=== PATIENT | female | born 1985 | race African-American/Black ===

== ENCOUNTER 2018-11-04 20:03 | Emergency (ER) | payer MEDICAID ==
[~2018-11-04] VITALS: Ht 149.9 cm; Wt 68.0 kg
[2018-11-04] MEDS ORDERED: NKM (20:11)
--- NOTE | 2018-11-04 20:19 | NUR ---
ED Nurse Note: pt walked in c/o abd cramping pain since yesterday, pt reports she started her menstrual cycle yesterday and pain progressively worsen and pt reports her bleeding color is black. denies . will cont monitor.
--- NOTE | 2018-11-04 20:22 | Emergency Room Report ---
History of Present Illness General Chief Complaint: Female Urogenital Problems Source: Patient Present Illness HPI Patient presents with severe menstrual cramps. She rates it 10/10. Her period started 2 days early. She states that she is passing black menstrual blood. She denies any discharge. There is no dysuria. The pain is suprapubic midline. She has had cramps in the past but not like this in the past. She tried taking Animas and did not control the pain. She does not believe she is . She denies fevers or chills. She has not had unprotected sex. She does not use tampons. She denies recent ultrasound or work-up. She is not passing clots. No sore throat, chest pain, palpitations, nausea, vomiting, diarrhea, shortness of breath, joint pain, rashes, depression, anxiety, visual changes, headache. Allergies: Coded Allergies: No Known Allergies (Unverified , 11/04/18) Patient History Past Medical History: see triage record Social History: Reports: smoking Social History Narrative Has a son and here with mom Last Menstrual Period: 11/03/18 Now: No Reviewed Nursing Documentation: PMH: Agreed; PSxH: Agreed Nursing Documentation-PMH Past Medical History: No History, Except For Hx Asthma: Yes Review of Systems All Other Systems: negative except mentioned in HPI Physical Exam Vital Signs Date Time Temp Pulse Resp B/P (MAP) Pulse Ox O2 Delivery O2 Flow Rate FiO2 11/04/18 20:05 97.9 75 20 106/51 (69) 100 Room Air Sp02 EP Interpretation: reviewed, normal General Appearance: well appearing, no apparent distress, GCS 15, non-toxic Head: normocephalic, atraumatic Eyes: bilateral eye normal inspection, bilateral eye PERRL, bilateral eye EOMI ENT: moist mucus membranes Neck: supple Respiratory: lungs clear, normal breath sounds Cardiovascular #1: regular rate, rhythm Cardiovascular #2: 2+ radial (R) Gastrointestinal: normal inspection, normal bowel sounds, no mass, non- distended, no guarding, no rebound, tenderness - Midline suprapubic Genitourinary: no CVA tenderness, deferred - For ultrasound Musculoskeletal: back normal, gait/station normal, normal range of motion Neurologic: alert, oriented x3, grossly normal Psychiatric: mood/affect normal Skin: no rash Medical Decision Making Diagnostic Impression: Primary Impression: Painful menstrual flow ER Course Patient with suprapubic pain and vaginal bleeding. Differential includes ectopic , ruptured ovarian cyst, elevated inflammatory disease, UTI amongst others. She will be evaluated with labs and urinalysis and pelvic ultrasound. The patient would be treated with Reglan, Benadryl and morphine with some IV hydration. CBC unremarkable. Urinalysis with blood. Ultrasound essentially normal. (Per tech reading. See below.) Wet mount from ultrasound probe unremarkable. Contaminated urine. No tx. Await culture. I advised against treatment. Pain is remarkably improved. Discussed results with patient. Advised to follow -up with your [employer]. Patient stable for outpatient observation and treatment. Laboratory Tests Test 11/04/18 20:16 11/04/18 20:35 Urine Color Yellow Urine Appearance Cloudy Urine pH 5 (4.5-8.0) Urine Specific [place] 1.015 (1.005-1.035) Urine Protein 1+ (NEGATIVE) H Urine Glucose (UA) Negative (NEGATIVE) Urine Ketones Negative (NEGATIVE) Urine Blood 5+ (NEGATIVE) H Urine Nitrite Negative (NEGATIVE) Urine Bilirubin Negative (NEGATIVE) Urine Urobilinogen 4 MG/DL (0.0-1.0) H Urine Leukocyte Esterase 2+ (NEGATIVE) H Urine RBC Tntc /HPF (0 - 2) H Urine WBC 10-15 /HPF (0 - 2) H Urine Squamous Epithelial Cells Few /LPF (NONE/OCC) Urine Bacteria Moderate /HPF (NONE) H Urine HCG, Qualitative Negative (NEGATIVE) Chlamydia trachomatis RNA Pending Neisseria gonorrhoeae RNA Pending White Blood Count 7.9 K/UL (4.8-10.8) Red Blood Count 4.32 M/UL (4.20-5.40) Hemoglobin 11.9 G/DL (12.0-16.0) L Hematocrit 37.3 % (37.0-47.0) Mean Corpuscular Volume 86 FL (80-99) Mean Corpuscular Hemoglobin 27.6 PG (27.0-31.0) Mean Corpuscular Hemoglobin Concent 32.0 G/DL (32.0-36.0) Red Cell Distribution Width 12.0 % (11.6-14.8) Platelet Count 349 K/UL (150-450) Mean Platelet Volume 5.4 FL (6.5-10.1) L Neutrophils (%) (Auto) 52.2 % (45.0-75.0) Lymphocytes (%) (Auto) 38.5 % (20.0-45.0) Monocytes (%) (Auto) 5.4 % (1.0-10.0) Eosinophils (%) (Auto) 2.5 % (0.0-3.0) Basophils (%) (Auto) 1.4 % (0.0-2.0) Prothrombin Time 10.5 SEC (9.30-11.50) Prothrombin Time INR 1.0 (0.9-1.1) PTT 30 SEC (23-33) Sodium Level 138 MMOL/L (136-145) Potassium Level 3.7 MMOL/L (3.5-5.1) Chloride Level 105 MMOL/L (98-107) Carbon Dioxide Level 27 MMOL/L (21-32) Anion Gap 6 mmol/L (5-15) Blood Urea Nitrogen 12 mg/dL (7-18) Creatinine 0.8 MG/DL (0.55-1.30) Estimate Glomerular Filtration Rate > 60 mL/min (>60) Glucose Level 89 MG/DL (74-106) Calcium Level 8.7 MG/DL (8.5-10.1) Total Bilirubin 0.2 MG/DL (0.2-1.0) Aspartate Amino Transferase (AST) 16 U/L (15-37) Alanine Aminotransferase (ALT) 9 U/L (12-78) L Alkaline Phosphatase 49 U/L (46-116) Total Protein 6.8 G/DL (6.4-8.2) Albumin 4.1 G/DL (3.4-5.0) Globulin 2.7 g/dL Albumin/Globulin Ratio 1.5 (1.0-2.7) Lipase 124 U/L (73-393) Microbiology Date/Time Source Procedure Growth Status 11/04/18 21:35 Vaginal Wet Prep - Final Complete CT/MRI/US Diagnostic Results CT/MRI/US Diagnostic Results : Imaging Test Ordered: Pelvic ultrasound Impression IMPRESSION: Mild heterogeneity to the uterus echotexture that could represent the presence of small fibroids. Otherwise unremarkable pelvic ultrasound. Last Vital Signs Date Time Temp Pulse Resp B/P (MAP) Pulse Ox O2 Delivery O2 Flow Rate FiO2 11/04/18 22:30 97.9 79 16 110/56 100 Room Air Status: improved Disposition: HOME, SELF-CARE Condition: Improved Scripts Tramadol Hcl* (ULTRAM*) 50 Mg Tablet 50 MG ORAL Q6H PRN for For Pain, #8 TAB 0 Refills Prov: Carlos Gasca MD 11/04/18 Carlos Gasca MD Nov 04, 2018 20:22
[2018-11-04 20:30] LABS: APPEARANCE,URINE CLOUDY; BILIRUBIN, URINE NEGATIVE (NEGATIVE); GLUCOSE, URINE (UA) NEGATIVE (NEGATIVE); KETONES,URINE NEGATIVE (NEGATIVE); LEUKOCYTE ESTERASE ,URINE 2+ (NEGATIVE); NITRITE,URINE NEGATIVE (NEGATIVE); PH,URINE 5 (4.5-8.0); PROTEIN,URINE 1+ (NEGATIVE); UROBILINOGEN,URINE 4 MG/DL (0.0-1.0)
[2018-11-04] MEDS ORDERED: Metoclopramide 10mg/2ml Inj IVP ONE (20:30)
[2018-11-04] MEDS ORDERED: Morphine Sulfate 4mg/ml Inj (IV USE ONLY) IVP ONE (20:30)
[2018-11-04] MEDS ORDERED: DiphenhydrAMINE 50mg/ml Inj IVP ONE (20:30)
[2018-11-04 20:33] LABS: COLOR,URINE YELLOW
[2018-11-04 20:50] LABS: BASOPHILS % (AUTO) 1.4 % (0.0-2.0); EOSINOPHILS % (AUTO) 2.5 % (0.0-3.0); HEMATOCRIT 37.3 % (37.0-47.0); HEMOGLOBIN 11.9 G/DL (12.0-16.0); LYMPHOCYTES % (AUTO) 38.5 % (20.0-45.0); MEAN CORPUSCULAR VOLUME 86 FL (80-99); MONOCYTES % (AUTO) 5.4 % (1.0-10.0); NEUTROPHILS % (AUTO) 52.2 % (45.0-75.0); PLATELET COUNT 349 K/UL (150-450); RED BLOOD COUNT 4.32 M/UL (4.20-5.40); WHITE BLOOD COUNT 7.9 K/UL (4.8-10.8)
[2018-11-04 21:00] VITALS: BP 106/51
[2018-11-04 21:05] LABS: ANION GAP 6 mmol/L (5-15); BLOOD UREA NITROGEN 12 mg/dL (7-18); CALCIUM 8.7 MG/DL (8.5-10.1); CARBON DIOXIDE 27 MMOL/L (21-32); CHLORIDE 105 MMOL/L (98-107); CREATININE 0.8 MG/DL (0.55-1.30); POTASSIUM 3.7 MMOL/L (3.5-5.1); SODIUM 138 MMOL/L (136-145)
[2018-11-04 21:10] LABS: ALANINE AMINOTRANSFERASE 9 U/L (12-78); ALBUMIN 4.1 G/DL (3.4-5.0); ALBUMIN/GLOBULIN RATIO 1.5 (1.0-2.7); ALKALINE PHOSPHATASE 49 U/L (46-116); ASPARTATE AMINO TRANSFERASE 16 U/L (15-37); BILIRUBIN,TOTAL 0.2 MG/DL (0.2-1.0)
--- NOTE | 2018-11-04 21:53 | Diagnostic Imaging Report ---
Indication: Pelvic pain, vaginal bleeding, negative test Technique: Transabdominal and transvaginal images of the pelvis. Doppler interrogation of the bilateral ovaries Comparison: none Findings: Uterus is anteverted, slightly retroflexed, measures 7.8 cm length by 4.1 cm AP. The endometrium measures 4 mm thick. The myometrium is somewhat heterogeneous without discrete lesion. The right ovary measures 2.2 cm length. The left ovary measures 3 cm length. Both ovaries demonstrate normal blood flow on Doppler imaging. No adnexal mass. No free cul-de-sac fluid Impression: Heterogeneously myometrial echogenicity, nonspecific Otherwise unremarkable
[2018-11-04] MEDS ORDERED: TRAMADOL HCL50 MG ORAL (22:21)
[2018-11-04 22:30] VITALS: BP 110/56
--- NOTE | 2018-11-04 22:30 | NUR ---
ED Nurse Note: pt cleared to be d/c per ERMD, pt discharge and aftercare instruction provided w/ prescription, pt education done via discussion and handout, pt advised to follow up with pcp or return to ed if changes in condition, pt verbalized understanding and agrees with plan, vss, ambulatory w/ steady gait, left w/ all belongings, iv d/c and id removed, pt accompanied by and son.
[2018-11-08] MEDS ORDERED: NITROFURANTOIN100 M2 ORAL (06:22)
== END 2018-11-04 22:30 | disposition home or self-care (01) ==
LOC: EMR 20:52
DX: N94.6 Dysmenorrhea, unspecified (principal); F17.200 Nicotine dependence, unspecified, uncomplicated
CPT/HCPCS: 36415; 76830; 76856; 80053; 81003; 81025; 83690; 85025; 85610; 85730; 87086; 87181; 87210; 87491; 87590; 96361; 96374; 96375; 99284; J1200; J2270; J2765

== ENCOUNTER 2018-11-22 21:39 | Emergency (ER) | payer MEDICAID ==
[~2018-11-22] VITALS: Ht 149.9 cm; Wt 65.8 kg
[~2018-11-22 21:39] MED LIST: NITROFURANTOIN100 M2 ORAL; NKM; TRAMADOL HCL50 MG ORAL
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
[2018-11-22] MEDS ORDERED: IBUPROFEN600 MG ORAL (22:48)
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
[2018-11-22 23:00] VITALS: BP 129/77
--- NOTE | 2018-11-22 23:05 | NUR ---
ED Nurse Note:ER DISCHARGE NOTE: Patient is cleared to be discharged per ERMD, pt is aox4, on room air, with stable vital signs. pt was given dc and prescription instructions, pt was able to verbalize understanding, pt id band and iv site removed without complications. pt is able to ambulate with steady gait. pt took all belongings.
[2018-11-22 23:10] VITALS: BP 129/77
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
== END 2018-11-22 23:10 | disposition home or self-care (01) ==
LOC: EMR 22:26
DX: S66.912A Strain of unspecified muscle, fascia and tendon at wrist and hand level, left hand, initial encounter (principal); Y04.0XXA Assault by unarmed brawl or fight, initial encounter; Y92.9 Unspecified place or not applicable; J45.909 Unspecified asthma, uncomplicated
CPT/HCPCS: 99283